=== PATIENT | male | born 1985 | race Caucasian/White ===

== ENCOUNTER 2021-11-21 17:29 | Outpatient (CLI) | payer BC ==
[2021-11-22 16:35] LABS: SARS-CoV-2 PCR by NAA Not Detected (NotDetected)
== END 2021-11-21 17:30 | disposition home or self-care (01) ==
LOC: LABBT 17:29
PROVIDERS: ATTEND Otolaryngology Plastic Surgery within the Head & Neck
DX: J32.9 Chronic sinusitis, unspecified (principal); J34.2 Deviated nasal septum; K13.79 Other lesions of oral mucosa; G47.33 Obstructive sleep apnea (adult) (pediatric); R06.83 Snoring; G47.19 Other hypersomnia; J35.1 Hypertrophy of tonsils; Z20.822 Contact with and (suspected) exposure to COVID-19
CPT/HCPCS: U0003; U0005

== ENCOUNTER 2021-11-26 08:36 | Day surgery (SDC) | payer BC ==
[2021-11-25 09:48] VITALS: BMI 34.0
[2021-11-26] MEDS ORDERED: AFRIN NASAL MIST 15 ML BOT ONE ×2 (10:12→10:23)
[2021-11-26] MEDS ORDERED: Bacitracin Zinc Ointment 30 gm TUBE ONE (10:23)
[2021-11-26] MEDS ORDERED: Lidocaine 1% w/Epinephrine 1:100K 20 ML VIAL ONE (10:23)
[2021-11-26] MEDS ORDERED: Midazolam HCl 2 mg/2 ml Vial ONE (10:28)
[2021-11-26] MEDS ORDERED: fentaNYL Citrate/PF 100 MCG/2 ML SYRINGE ONE (10:28)
[2021-11-26] MEDS ORDERED: methylPREDNISolone Acetate 40 mg/ml Vial ONE (11:10)
[2021-11-26] MEDS ORDERED: hydrALAZINE 20 MG/ML VIAL ONE (12:51)
[2021-11-26] MEDS ORDERED: Fentanyl 100 MCG/2 ML VIAL ONE (13:03)
== END 2021-11-26 14:30 | disposition home or self-care (01) ==
LOC: SDC 08:36
PROVIDERS: ATTEND Otolaryngology Plastic Surgery within the Head & Neck
PROC: 0CTNXZZ Resection of Uvula, External Approach (ICD-10-PCS; principal; 2021-11-26)
PROC: 09SM0ZZ Reposition Nasal Septum, Open Approach (ICD-10-PCS; principal; 2021-11-26)
PROC: 099T8ZZ Drainage of Left Frontal Sinus, Via Natural or Artificial Opening Endoscopic (ICD-10-PCS; principal; 2021-11-26)
PROC: 09TV8ZZ Resection of Left Ethmoid Sinus, Via Natural or Artificial Opening Endoscopic (ICD-10-PCS; principal; 2021-11-26)
PROC: 09TU8ZZ Resection of Right Ethmoid Sinus, Via Natural or Artificial Opening Endoscopic (ICD-10-PCS; principal; 2021-11-26)
PROC: 099S8ZZ Drainage of Right Frontal Sinus, Via Natural or Artificial Opening Endoscopic (ICD-10-PCS; principal; 2021-11-26)
PROC: 099Q8ZZ Drainage of Right Maxillary Sinus, Via Natural or Artificial Opening Endoscopic (ICD-10-PCS; principal; 2021-11-26)
PROC: 095L7ZZ Destruction of Nasal Turbinate, Via Natural or Artificial Opening (ICD-10-PCS; principal; 2021-11-26)
PROC: 099R8ZZ Drainage of Left Maxillary Sinus, Via Natural or Artificial Opening Endoscopic (ICD-10-PCS; principal; 2021-11-26)
DX: J32.9 Chronic sinusitis, unspecified (principal); J34.2 Deviated nasal septum; J34.3 Hypertrophy of nasal turbinates; J34.89 Other specified disorders of nose and nasal sinuses; K13.79 Other lesions of oral mucosa; G47.33 Obstructive sleep apnea (adult) (pediatric); J35.1 Hypertrophy of tonsils
CPT/HCPCS: 88302; J0360; J2250; J2920; J3010